=== PATIENT | male | born 1975 | race Two or more races ===

== ENCOUNTER 2024-11-12 15:33 | Emergency (ER) | payer OTHER ==
[~2024-11-12] VITALS: Ht 172.7 cm; Wt 73.5 kg
[2024-11-12 16:14] VITALS: BP 134/84; O2SAT 95
[2024-11-12] MEDS ORDERED: CETIRIZINE HCL 5 MG/5 ML ML PO ONE (17:30)
[2024-11-12] MEDS ORDERED: GUAIFENESIN/DEXTROMETHORPHAN 10ML BLIST.PACK PO ONE ×2 (17:30→19:24)
[2024-11-12] MEDS ORDERED: CETIRIZINE HCL 5MG/5ML BLIST.PACK PO ONE (19:24)
[2024-11-12 20:18] LABS: HEMATOCRIT 47.2 % (39.0-48.0); HEMOGLOBIN 15.8 g/dL (13-16.00); MEAN CELL VOLUME 91.8 fL (80.0-100.00); MEAN CORPUSCULAR HEMOGLOBIN 30.8 pg (27.00-32.0); MEAN CORPUSCULAR HGB CONC 33.5 g/dl (32.0-36.0); PLATELET COUNT 204 K/uL (150-450); RED BLOOD COUNT 5.15 M/uL (4.00-6.00); RED CELL DISTRIBUTION WIDTH 13.9 % (11.5-14.5)
[2024-11-12] MEDS ORDERED: ZYRTEC10 MG PO (20:45)
[2024-11-12] MEDS ORDERED: ZYNCOF 20-400120 ML PO (20:45)
[2024-11-12] MEDS ORDERED: SINGULAIR10 MG PO (20:51)
[2024-11-12] MEDS ORDERED: FLONASE16 GM NASAL (20:51)
== END 2024-11-12 20:58 | disposition home or self-care (01) ==
LOC: ER 15:35
PROVIDERS: General Practice
DX: J06.9 Acute upper respiratory infection, unspecified (principal); Z20.822 Contact with and (suspected) exposure to COVID-19